=== PATIENT | male | born 1940 | race Caucasian/White ===

== ENCOUNTER → 2019-12-02 | Outpatient (CLI) | payer MEDICARE, OTHER ==
[~2019-12-02] MED LIST: CRESTOR40 MG PO; FUROSEMIDE 20 M20 MG PO; GLUCOPHAGE850 MG PO; KLOR-CON 1010 MEQ PO; LISINOPRIL5 MG PO; OMEPRAZOLE 20 M20 M1 PO; PERCOCET 5-3251 EACH PO; SUPER THERAVIT1 EACH PO; XARELTO10 M1 PO
== END ==
LOC: M.MRI 08:07
PROVIDERS: ATTEND Orthopaedic Surgery
DX: S83.241A Other tear of medial meniscus, current injury, right knee, initial encounter (principal); S83.242A Other tear of medial meniscus, current injury, left knee, initial encounter; M17.12 Unilateral primary osteoarthritis, left knee; M25.862 Other specified joint disorders, left knee; X58.XXXA Exposure to other specified factors, initial encounter; Y93.89 Activity, other specified; Y92.89 Other specified places as the place of occurrence of the external cause; Y99.8 Other external cause status

== ENCOUNTER 2019-12-23 06:52 | Inpatient (IN) | payer MEDICARE, OTHER ==
[2019-12-16 09:22] LABS: HEMATOCRIT 42.5 % (42.0-52.0); HEMOGLOBIN 14.6 gm/dL (14.0-18.0); MCH 31.2 pg (26.0-34.0); MCHC 34.3 g/dL (28.0-37.0); MPV 8.2 fl. (7.2-11.1); RBC 4.67 mil/uL (4.50-6.00); RDW-CV 14.2 % (10.5-14.5); WBC 11.8 thou/uL (4.0-11.0)
[2019-12-16 09:30] LABS: INR 1.1; PROTIME 10.9 Seconds (9.20-11.50)
[2019-12-16 09:31] LABS: URINE BILIRUBIN NEGATIVE (Negative); URINE BLOOD NEGATIVE (Negative); URINE CLARITY CLEAR; URINE COLOR YELLOW; URINE GLUCOSE-RANDOM NEGATIVE (Negative); URINE KETONES NEGATIVE (Negative); URINE LEUKOCYTES-REFLEX NEGATIVE (Negative); URINE NITRITE-REFLEX NEGATIVE (Negative); URINE PROTEIN NEGATIVE (Negative); URINE SPECIFIC GRAVITY 1.015 (1.005-1.030); URINE UROBILINOGEN 0.2 E.U./dl (0.2-1.0)
[2019-12-16 09:33] LABS: CALCIUM 9.2 mg/dL (8.5-10.1); CREATININE 1.4 mg/dL (0.6-1.3); POTASSIUM 4.3 mmol/L (3.5-5.1); TOTAL BILIRUBIN 0.5 mg/dL (<0.1-1.0); TOTAL PROTEIN 7.2 g/dL (6.4-8.2)
--- NOTE | 2019-12-16 12:08 | EKG ---
[place] [address] ELECTROCARDIOGRAM REPORT Name: RU MALCOLM Room: PRE IN [facility]#: [id number] Admission: Attend Phys: Artur Fernandez Discharge: Date of : 36 Date of Service: 12/16/19 105 Report #: [id number] THIS REPORT FOR: //name// [facility] Test Date: 2019-12-16 Test Time: 10:50:00 Pat Name: RU MALCOLM Department: Room: Gender: [employer] Professor: : 1940 Requested By: Shan Foster Order Number: [id number] Bhupinder MD: Bob Ling Measurements Intervals [place] Rate: 61 P: 34 AR: 238 QRS: -34 QRSD: 121 T: 56 QT: 412 QTc: 415 Interpretive Statements Sinus rhythm Prolonged AR interval Nonspecific intraventricular conduction delay No previous ECG available for comparison Electronically Signed On 12-16-2019 12:07:56 CDT by Bob Ling [email or web address] <ELECTRONICALLY SIGNED> By: Bob Ling MD, [facility] 12/16/19 1207 1050 1050 Bob Ling MD, FACC /EPI
[~2019-12-23] VITALS: Ht 167.6 cm; Wt 107.0 kg
[2019-12-23] VITALS (8 sets, daily range): BP systolic 120–138; BP diastolic 49–73
[~2019-12-23 06:52] MED LIST changes: -PERCOCET 5-3251 EACH PO; -XARELTO10 M1 PO
[2019-12-23] MEDS ORDERED: PERCOCET 5-3251 EACH PO (14:01)
[2019-12-23] MEDS ORDERED: XARELTO10 M1 PO (14:01)
--- NOTE | 2019-12-23 17:24 | NUR ---
PATIENT ARRIVED TO UNIT AT APPROX 1145. ALERT AND OREINTED X4. ASSESSMENT COMPLETED AND CHARTED. VSS ON 4 LITERS 02. PATIENT USES CPAP AT [facility] AND HAS HIS MACHINE WITH HIM. FLUIDS AND ANTIBIOTIC INFUSED ORDERED. PATIENT STATED THAT HE WOULD PREFER US TO NOT GIVE HIM NORCO HE STATES THAT IT DOES NOTHING FOR HIS PAIN. SWITHCED TO OXY. PATIENT UP WITH GAIT BELT AND WALKER TO THE CHAIR THIS AFTERNOON. NO OTHER COMPLAINTS. POLAR PACK IN PLACE. BULKY DRESSING NOTED TO LEFT KNEE IS CLEAN, DRY, AND INTACT. HEMAVAC IN PLACE AND DRAINING SANGUINOUS DRAINAGE. FALL PRECAUTIONS IN PLACE. CALL LIGHT WITHIN REACH. HOURLY ROUNDS COMPLETED. WILL CONTINUE WITH PLAN OF CARE.
[2019-12-24] VITALS: BP 120/56
[2019-12-24 04:00] VITALS: BP 131/62
[2019-12-24 04:59] LABS: HEMATOCRIT 36.8 % (42.0-52.0); HEMOGLOBIN 12.3 gm/dL (14.0-18.0); MCH 30.5 pg (26.0-34.0); MCHC 33.5 g/dL (28.0-37.0); MPV 8.7 fl. (7.2-11.1); RBC 4.04 mil/uL (4.50-6.00); RDW-CV 14.1 % (10.5-14.5); WBC 17.9 thou/uL (4.0-11.0)
[2019-12-24 05:27] LABS: ALBUMIN 3.1 g/dL (3.4-5.0); CALCIUM 8.5 mg/dL (8.5-10.1); CREATININE 1.3 mg/dL (0.6-1.3); MAGNESIUM 1.9 mg/dL (1.8-2.4); POTASSIUM 4.1 mmol/L (3.5-5.1); TOTAL BILIRUBIN 0.4 mg/dL (<0.1-1.0); TOTAL PROTEIN 5.8 g/dL (6.4-8.2)
--- NOTE | 2019-12-24 05:55 | NUR ---
PATIENT SLEPT PART OF THE NIGHT. IV FLUIDS CONTINUE TO INFUSE ORDERED. PATIENT WAS GIVEN PAIN MEDICINE TWICE THIS SHIFT WITH GOOD RELIEF. PATIENT DID HIS CPM TWICE THIS SHIFT. PATIENT COULD POSSIBLY DISCHARGE DEPENDING ON HOW WELL HE DOES WITH THERAPY. WILL CONTINUE TO MONITOR.
[2019-12-24 07:05] VITALS: BP 133/62
[2019-12-24 10:20] VITALS: BP 120/58
[2019-12-24 11:45] VITALS: BP 129/58
--- NOTE | 2019-12-24 12:00 | NUR ---
PT.TO DISCHARGE TODAY AFTER AFTERNOON PT. SUKI.CALLED IN [place] TO [facility] AND COPAY WAS $183. HE SAID HE COULD AFFORD THAT AMT. HE WOULD LIKE TO USE [facility] . FAXED REFERRAL AND DISCHARGE SUMMARY TO [facility]. KAREL CALLED BACK AND SAID THEY WOULD ACCEPT HIM AND SEE HIM TOMORROW. HE LIVES WITH HIS AND SHE CAN ASSIST HIM NEEDED. HE IS NORMALLY INDEPENDENT AT HOME. HE HAS A FWW. DISCUSSED CPM AND HEMANT BERNARD. ALL INFORMATION PUT IN DISCHARGE INSTRUCTIONS.
[2019-12-24 15:20] VITALS: BP 120/58
--- NOTE | 2019-12-24 15:21 | NUR ---
PT GIVEN DISCHARGE INFORMATION, CARE NOTES, AND PRESCRIPTIONS. IV REMOVED. PT BELONGINGS GATHERED, PT HAS WON WALKER. FALL RISK PRECAUTIONS IN PLACE. HOURLY ROUNDING COMPLETED. PT LEFT VIA WHEEL CHAIR WITH NURSING STAFF TO HOME WITH HOME HEALTH.
[2019-12-25] MEDS ORDERED: PERCOCET 7.5-31 EACH PO (23:06)
[2019-12-25] MEDS ORDERED: KEFLEX500 M1 PO (23:06)
--- NOTE | 2019-12-26 08:15 | OP ---
[facility] [address] [place] [address] OPERATIVE REPORT Name: YUNRU E [address]: [address] [id number] Admission: 12/23/19 Attend Phys: Manav Silva Discharge: 12/24/19 Date of : 36 Report #: [id number] THIS REPORT FOR: //name// cc: Geovanny Feliz Christopher G DO ~ THIS REPORT FOR: //name// CC: Geovanny Fernandez DATE OF SERVICE: 12/23/2019 PREOPERATIVE DIAGNOSIS: Left knee osteoarthritis. POSTOPERATIVE DIAGNOSIS: Left knee osteoarthritis. PROCEDURE: Left total knee arthroplasty. SURGEON: Shan Foster II, DO PRESSURE CONTROLLER: AD Leslie ANESTHESIA: General endotracheal. ESTIMATED BLOOD LOSS: 50 mL. ANTIBIOTICS: Ancef preoperatively. DRAINS: Medium Hemovac. COMPLICATIONS: None. CONDITION OF THE PATIENT: Stable to recovery room. IMPLANTS: Listed in operative record and progress note. BRIEF HISTORY: The patient was seen in the preoperative area. Preoperative H and P was performed. Site was marked. Questions were answered. Risks and benefits were discussed with the patient in detail about the surgery. The patient wished to proceed, assuming all risks. DESCRIPTION OF PROCEDURE: The patient was taken to the operative suite, placed supine on the operating table, given appropriate anesthesia. A well-padded tourniquet was applied to upper thigh which was inflated to 300 mmHg after gravity exsanguination. The operative knee was sterilely prepped and draped. [address] [address] OPERATIVE REPORT Name: RU MALCOLM Corrina Room: [address] IN [facility].#: [id number] Admission: 12/23/19 Attend Phys: Manav Silva Discharge: 12/24/19 Date of : 36 Report #: [id number] Surgery began by midline incision. This was carried down to the subcutaneous tissues. A medial parapatellar arthrotomy was performed and carried down to bone. Patella was then everted and excess soft tissue was removed from around the femur. Femoral cutting block was then applied, checked with drop america for rotational alignment, pinned in appropriate position and appropriate cuts were made. A 4-in-1 cutting block was then applied, checked for rotational alignment, pinned in appropriate position and appropriate cuts were made. The tibia was then exposed. Excess meniscus was removed. Retractor was placed on collateral ligaments. The tibial cutting block was then applied, pinned in appropriate position, checked with a drop of rotational alignment and slope and appropriate cut was made. The tibial bone was removed. The tibial base plate was then applied, checked for rotational alignment with the drop america and pinned in appropriate position. The femur was then applied and box cut was reamed. This was then trialed with appropriate spacer, which showed excellent fit and fill and excellent stability of knee through all range of motion. The patella was reamed in appropriate fashion and sized to appropriate size. Three peg holes were drilled and it was then trialed and showed excellent flexion and extension, excellent tracking of the patella within the groove. These trials were then removed. The tibia was punched in appropriate fashion. Bone ends were cleansed with Pulsavac irrigation and cement was mixed and applied to final implants. These were then malleted into position and held the knee in extension and compressed to allow cement to cure. After it cured, excess was removed using a Hague and osteotome. Wound was then copiously irrigated and the final spacer was then malleted into position. The tourniquet was deflated. Hemostasis was obtained with electrocautery. Pain cocktail was injected. PRP gel sprayed throughout the internal aspects of the knee. Medium Hemovac drain was applied. Capsule was closed with #2 FiberWire and #1 Vicryl in [id number] fashion. Skin was closed with 2-0 Vicryl and running 3-0 Monocryl. Dermabond and sterile dressing applied. Vinny wrap and PolarCare applied. The patient transported to recovery room in stable condition. Counts were correct throughout the procedure. <ELECTRONICALLY SIGNED> By: Shan Foster II, DO 12/26/19 0815 2219 [id number] Foster II, DO /nt
--- NOTE | 2019-12-26 10:39 | NUR ---
LATE ENTRY, RECIEVED O.T. EVAL AND TX ORDERS 12/22 FOR 12/23. WILL DEFER TO P.T. AT THIS TIME. PLEASE ORDER FURTHER O.T. SERVICES IF NEEDED.
== END 2019-12-24 15:22 | disposition home health service (06) | DRG 470 ==
LOC: M.ORTHSURG 06:52 → M.TBA 06:52 → M.ORTHSURG 11:48 → M.PRE 12:48 → M.ORTHSURG 12-24 15:22
PROVIDERS: Internal Medicine; Orthopaedic Surgery; ADMIT Internal Medicine; ATTEND Internal Medicine
PROC: 0SRD0J9 Replacement of Left Knee Joint with Synthetic Substitute, Cemented, Open Approach (ICD-10-PCS; principal; 2019-12-23)
DX: M17.12 Unilateral primary osteoarthritis, left knee (principal); E11.9 Type 2 diabetes mellitus without complications; I10 Essential (primary) hypertension; E78.00 Pure hypercholesterolemia, unspecified; E78.5 Hyperlipidemia, unspecified; Z85.46 Personal history of malignant neoplasm of prostate; Z87.891 Personal history of nicotine dependence; Z79.84 Long term (current) use of oral hypoglycemic drugs; Z79.891 Long term (current) use of opiate analgesic; Z79.899 Other long term (current) drug therapy; Z90.89 Acquired absence of other organs; Z95.5 Presence of coronary angioplasty implant and graft; Z03.818 Encounter for observation for suspected exposure to other biological agents ruled out; I25.10 Atherosclerotic heart disease of native coronary artery without angina pectoris

== ENCOUNTER 2019-12-25 21:32 | Inpatient (IN) | payer MEDICARE, OTHER ==
[~2019-12-25] VITALS: Ht 167.6 cm; Wt 107.0 kg
[~2019-12-25 21:32] MED LIST changes: +PERCOCET 5-3251 EACH PO; +XARELTO10 M1 PO
[2019-12-25 22:02] VITALS: BP 152/61
[2019-12-25 22:32] LABS: ABSOLUTE BASOPHILS 0.1 thou/uL (0.0-0.2); ABSOLUTE EOSINOPHILS 0.3 thou/uL (0.0-0.7); ABSOLUTE LYMPHOCYTES 1.2 thou/uL (0.8-5.3); ABSOLUTE MONOCYTES 1.6 thou/uL (0.0-1.2); EOSINOPHILS 2.6 %; HEMATOCRIT 37.8 % (42.0-52.0); HEMOGLOBIN 12.9 gm/dL (14.0-18.0); LYMPHOCYTES 10.1 %; MCH 31.1 pg (26.0-34.0); MCHC 34.3 g/dL (28.0-37.0); MCV 90.8 fL (80.0-100.0); MONOCYTES 13.3 %; MPV 8.4 fl. (7.2-11.1); NUCLEATED RBCS 0 /100WBC; PLATELET COUNT* 268 thou/uL (150-400); RBC 4.16 mil/uL (4.50-6.00); RDW-CV 14.3 % (10.5-14.5); WBC 12.3 thou/uL (4.0-11.0)
[2019-12-25 22:44] LABS: CALCIUM 8.5 mg/dL (8.5-10.1); CREATININE 1.5 mg/dL (0.6-1.3); POTASSIUM 4.1 mmol/L (3.5-5.1)
[2019-12-25 22:49] LABS: ALBUMIN 3.2 g/dL (3.4-5.0); TOTAL BILIRUBIN 0.7 mg/dL (<0.1-1.0); TOTAL PROTEIN 6.6 g/dL (6.4-8.2)
[2019-12-25] MEDS ORDERED: PERCOCET 7.5-31 EACH PO (23:06)
[2019-12-25] MEDS ORDERED: KEFLEX500 M1 PO (23:06)
[2019-12-26 01:41] VITALS: BP 111/58
[2019-12-26 01:43] VITALS: BP 132/47
--- NOTE | 2019-12-26 05:13 | NUR ---
HERE FROM ER 0145. USING URINAL, BEDREST ORDERS. GAVE 2 TABS OXYCODONE 7.5 0300 PT SLEEPING WELL AT THIS TIME. ROOM AIR, ALERT AND ORIENTED. ZOSYN RUNNING. DR EDGAR CONSULTED. WILL CONTINUE TO FOLLOW PLAN OF CARE.
[2019-12-26 07:20] VITALS: BP 123/63
[2019-12-26 13:51] VITALS: BP 125/65
--- NOTE | 2019-12-26 15:47 | NUR ---
PT.CAME BACK INTO HOSPITAL FOR ACUTE KNEE PAIN S/P TOTAL KNEE REPLACEMENT 12/22. HE SAID HE WAS TAKING HIS PAIN MEDICATIONS OFTEN HE COULD HAVE IT. HE SAID THERAPY WENT WELL AT HOME FOR FIRST HH VISIT WITH [facility]. HE SAID HE LIVES IN A SPLIT ENTRY. HE HAS 7 STEPS AND A LANDING AND THEN 7 MORE TO COME IN FROM [place]AR[place]. HE HAD BEEN STAYING IN THE BASEMENT, ALTHOUGH HE WAS ABLE TO WALK 15 STAIRS WITH THERAPY ON DAY AFTER SURGERY. HE SAID HE CANNOT GO UP AND DOWN STAIRS WELL, ESPECIALLY IF SHE WAS CARRYING FOOD. SHE CANNOT LIFT THE CPM. HE DID NOT BRING HIS CPM OR POLAR MARCO ANTONIO WITH HIM HE DID NOT KNOW HE WAS STAYING. HE SAID I DIDN'T THINK I'D BE THIS DISABLED AFTER SURGERY, I WOULD HAVE NEVER HAVE HAD THIS SURGERY. HE SAID HE DID ATTEND PAC CLASS AND DRS OFFICE EDUCATED HIM. HE WOULD LIKE TO GO TO ACUTE REHAB HIS WENT THERE SEVERAL YEARS AGO. EXPLAINED CRITERIA AND IT WOULD BE UP TO THE REHAB DISCUSSED SNF. HE LIVES UP [place]. IF HE CAN'T GO TO REHAB HE WOULD LIKE TO GO TO SNF AT [facility] OR [facility]. WILL NOT BE ABLE TO SEE UNTIL SUNDAY. REFERRAL MADE TO [facility] AND [facility].
--- NOTE | 2019-12-26 17:07 | NUR ---
PT REMAINED ALERT AND ORIENTED. PT WORKED WITH THERAPY. PT STATES THEY DO NOT FEEL COMFORTABLE GOING HOME AND WANTS REHAB/SKILLED. CONSULTS MADE FOR REHAB. FALL RISK PRECAUTIONS IN PLACE. DRESSING COMPRESSED WITH SHAUN AND MADELAINE AND ICE TO KNEE. ABX GIVEN ORDERED. PT IV INFILTRATED, AWAITING ON COPIER FIELD SERVICE TECHNICIAN TO ASSIST, 3 FAILED ATTEMPTS PRIOR ON PATIENT BEFORE CALLING. PT C/O PAIN, MEDS GIVEN ORDERED. WILL CONTINUE TO MONITOR.
[2019-12-26 20:10] VITALS: BP 135/64
--- NOTE | 2019-12-27 05:13 | NUR ---
PAIN WELL MANAGED, AMBULATING TO THE RESTROOM WITH WALKER WELL ON HIS OWN. HE IS ALERT AND ORIENTED, ON ROOM AIR. RECEIVED ALL ABX, FLUIDS SCHEDULED. HE DID NOT ASK FOR ADDITIONAL PAIN MEDS ALL SHIFT. KEPT ICE ON KNEE AND MADELAINE HOSE, SHAUN WRAP. WILL CONTINUE TO FOLLOW PLAN OF CARE.
[2019-12-27 08:00] VITALS: BP 149/76
[2019-12-27 16:00] VITALS: BP 145/69
--- NOTE | 2019-12-27 16:41 | NUR ---
PATIENT ALERT AND ORIENTED X 4. VITAL SIGNS STABLE ON ROOM AIR. AFEBRILE. UP WITH ASSISTANCE, GAIT BELT, AND WALKER TO THE BATHROOM. IV PATENT AND SALINE LOCKED. PAIN BEING MANAGED WITH PO MEDICATION. DENIES NAUSEA AT THIS TIME. MEPILEX DRESSING IN PLACE TO LEFT KNEE CLEAN, DRY, INTACT. MADELAINE HOSE AND ICE PACKS IN PLACE. FALL PRECAUTIONS IN PLACE AND BED ALARM ON. HOURLY ROUNDS MAINTAINED THROUGHOUT THE SHIFT. CALL LIGHT WITHIN REACH. NURSING WILL CONTINUE TO MONITOR.
[2019-12-27 20:30] VITALS: BP 139/72
--- NOTE | 2019-12-28 06:29 | NUR ---
Alert and oriented x 4. Mepilex dressing intact. He does very well getting up with walker. He had 2 percocet at bedtime for pain. He has slept well.
[2019-12-28 08:30] VITALS: BP 146/72
[2019-12-28 16:10] VITALS: BP 139/62
--- NOTE | 2019-12-28 16:27 | NUR ---
PATIENT ALERT AND ORIENTED X 4. VITAL SIGNS STABLE ON ROOM AIR. AFEBRILE. UP WITH ASSISTANCE, GAIT BELT, AND WALKER TO THE BATHROOM. IV PATENT AND SALINE LOCKED. DENIES PAIN AND NAUSEA AT THIS TIME. DRESSING TO LEFT KNEE CLEAN, DRY, AND INTACT. MADELAINE HOSE AND ICE PACKS IN PLACE.FALL PRECAUTIONS IN PLACE AND BED ALARM ON. HOURLY ROUNDS MAINTAINED THROUGHOUT THE SHIFT. CALL LIGHT WITHIN REACH. NURSING WILL CONTINUE TO MONITOR.
[2019-12-28 20:30] VITALS: BP 153/70
[2019-12-29 04:52] LABS: HEMATOCRIT 35.4 % (42.0-52.0); HEMOGLOBIN 11.9 gm/dL (14.0-18.0); MCHC 33.6 g/dL (28.0-37.0); MCV 92.4 fL (80.0-100.0); MPV 8.2 fl. (7.2-11.1); RBC 3.83 mil/uL (4.50-6.00); RDW-CV 14.1 % (10.5-14.5); WBC 10.2 thou/uL (4.0-11.0)
[2019-12-29 05:01] LABS: CALCIUM 8.6 mg/dL (8.5-10.1); CREATININE 1.5 mg/dL (0.6-1.3); MAGNESIUM 2.2 mg/dL (1.8-2.4); POTASSIUM 4.2 mmol/L (3.5-5.1)
[2019-12-29 07:10] VITALS: BP 119/57
[2019-12-29] MEDS ORDERED: LIDOPATCH1 EACH TOP (07:48)
[2019-12-29] MEDS ORDERED: TRAMADOL 50 MG50 MG PO (07:48)
[2019-12-29] MEDS ORDERED: PERCOCET 7.5-31 EACH PO (07:48)
[2019-12-29 09:53] VITALS: BP 119/57
[2019-12-29 12:47] VITALS: BP 119/57
--- NOTE | 2019-12-29 14:00 | NUR ---
LEFT VM FOR [facility] TO SEE IF THEY COULD TAKE PT. SHE CALLED BACK AND SAID THEY DID NOT HAVE BED AVAILABILITY. [facility] AND SAID THEY CAN ACCEPT PT. HE DID NOT NEED ANOTHER COVID TEST. SHE WILL ORDER A CPM FOR HIM. SHE HAD ME CALL MINNIE AT [phone]. E-FAXED HER [id number] AND DISCHARGE ORDERS TO [phone]. THEY WILL PICK PT UP BETWEEN [phone]. DISCUSSED WITH PT.AND . EXPLAINED HE WAS DOING TO WELL IN THERAPY TO DO INPT.REHAB. THEY FEEL SNF WOULD BE BEST. CHART COPIED TO GO WITH PT. ERROL SINHA TO CALL REPORT.
[2019-12-29 14:31] VITALS: BP 119/57
--- NOTE | 2019-12-29 15:10 | NUR ---
PT REMAINED ALERT AND ORIENTED. PT TO TRANSFER TO FACILITY. REPORT GIVEN TO NEW FACILITY. IV REMOVED. PT BELONGINGS GATHERED. PT LEFT VIA WHEELCHAIR WITH TRANSPORTER TO NEW FACILITY.
[2019-12-29 15:11] VITALS: BP 119/57
== END 2019-12-29 15:12 | DRG 920 ==
LOC: M.ERS 21:32 → M.TBA-ER 12-26 00:29 → M.ORTHSURG 12-26 01:18
PROVIDERS: Emergency Medicine Emergency Medical Services; Internal Medicine; ADMIT Family Medicine; ATTEND Family Medicine
DX: M96.840 Postprocedural hematoma of a musculoskeletal structure following a musculoskeletal system procedure (principal); N17.9 Acute kidney failure, unspecified; L03.116 Cellulitis of left lower limb; M25.062 Hemarthrosis, left knee; E11.9 Type 2 diabetes mellitus without complications; I10 Essential (primary) hypertension; E78.00 Pure hypercholesterolemia, unspecified; I25.10 Atherosclerotic heart disease of native coronary artery without angina pectoris; E78.5 Hyperlipidemia, unspecified; D64.9 Anemia, unspecified; G89.29 Other chronic pain; Y83.1 Surgical operation with implant of artificial internal device as the cause of abnormal reaction of the patient, or of later complication, without mention of misadventure at the time of the procedure; Z96.652 Presence of left artificial knee joint; M54.9 Dorsalgia, unspecified; Y92.89 Other specified places as the place of occurrence of the external cause; Z85.46 Personal history of malignant neoplasm of prostate; Z95.5 Presence of coronary angioplasty implant and graft; Z79.899 Other long term (current) drug therapy; Z87.891 Personal history of nicotine dependence